=== PATIENT | female | born 1970 | race African-American/Black ===

== ENCOUNTER → 2016-11-30 | Day surgery (SDC) | payer OTHER ==
[~2016-11-30] MED LIST: PICC LINE 8 ML FLUSH PROTOCOL IVPUSH PRN
== END ==
LOC: JRADIR 10:13
PROVIDERS: ATTEND Surgery Vascular Surgery
DX: E11.51 Type 2 diabetes mellitus with diabetic peripheral angiopathy without gangrene (principal); M86.672 Other chronic osteomyelitis, left ankle and foot; Z79.4 Long term (current) use of insulin
CPT/HCPCS: G0277

== ENCOUNTER → 2016-12-01 | Day surgery (SDC) | payer OTHER | END | disposition home or self-care (01) | LOC: JRADIR 08:20 | PROVIDERS: ATTEND Surgery Vascular Surgery | PROC: 02HV33Z Insertion of Infusion Device into Superior Vena Cava, Percutaneous Approach (ICD-10-PCS; principal; 2016-12-01) | PROC: B548ZZA Ultrasonography of Superior Vena Cava, Guidance (ICD-10-PCS; 2016-12-01) | DX: N28.9 Disorder of kidney and ureter, unspecified (principal) | CPT/HCPCS: 36558; 75860; C1751; 75827-TC; 77001-TC; C1769; G0277 ==

== ENCOUNTER → 2017-02-02 | Day surgery (SDC) | payer OTHER | END | disposition home or self-care (01) | LOC: JRADIR 10:40 | PROVIDERS: ATTEND Internal Medicine Infectious Disease | PROC: 0JPT0XZ Removal of Tunneled Vascular Access Device from Trunk Subcutaneous Tissue and Fascia, Open Approach (ICD-10-PCS; principal; 2017-02-02) | DX: Z45.2 Encounter for adjustment and management of vascular access device (principal) | CPT/HCPCS: 36589; G0277 ==

== ENCOUNTER 2017-06-02 13:12 | Emergency (ER) | payer OTHER | END 2017-06-02 19:35 | disposition short-term general hospital (02) | LOC: JER 13:12 | CPT/HCPCS: 11042; 11045; 15275; 36415; 71045-TC-FY; 76705-TC; 80053; 81003; 81015; 82009; 82803; 83605; 84484; 85025; 85610; 85730; 87040; 87086; 93005; 93010; 96365; 96366; 96367; 99285-25; J7030; Q4106 ==

== ENCOUNTER 2017-07-10 17:45 | Emergency (ER) | payer OTHER ==
[2017-07-10 18:19] VITALS: BMI 32.1
[2017-07-10] MEDS ORDERED: SODIUM CHLORIDE 1,000 ML IV STA (18:41)
[2017-07-10] MEDS ORDERED: ACETAMINOPHEN 1000 MG/100 ML VIAL (NON FORMULARY) IVPB ONE (18:47)
--- NOTE | 2017-07-10 18:47 | PDOC ---
History of Present Illness - General Chief Complaint: Shortness of Breath Stated Complaint: FEVER/BLOOD PRESSURE/SUGAR PROBLEM Time Seen by Provider: 07/10/17 18:38 - History of Present Illness Initial Comments: 07/10/17 20:02 The patient is a 47 year old female with a history of HTN, HLD, DM, Renal Transplant who presents for evaluation of fever and right foot wounds. The patient reports worsening pain and swelling to her right foot on which there are multiple diabetic foot ulcers. She noted fever over the past few days prompting her presentation to the ED for further evaluation. She notes that she was admitted at [facility] in may for similar symptoms for IV antibiotics due to a left foot wound. She notes worsening symptoms in her right foot since discharge from [facility] on June 16. She also endorses some SOB over the past 1 month as well. She otherwise denies chest pain, nausea, vomiting, abdominal pain, or changes with urination or bowel movements. Past History - Past Medical History Allergies/Adverse Reactions: Allergies Allergy/AdvReac Type Severity Reaction Status Date / Time Penicillins Allergy Intermediate Itching Verified 06/02/17 13:16 Apple Allergy Uncoded 06/02/17 13:16 Grape Allergy Uncoded 06/02/17 13:16 Kiwi Allergy Uncoded 06/02/17 13:16 Home Medications: Ambulatory Orders Aspirin [Aspirin EC] 81 mg PO DAILY 09/14/14 Cholecalciferol (Vitamin D3) [Vitamin D] 50,000 unit PO WEEKLY 09/14/14 Mycophenolate Sodium [Mycophenolic Acid] 360 mg PO HS 09/14/14 Nifedipine ER [Procardia XL -] 60 mg PO BID 09/14/14 Rosuvastatin Calcium [Crestor] 10 mg PO DAILY 09/14/14 Sodium Bicarbonate - 1,300 mg PO TID 09/14/14 Tacrolimus [Prograf] 7 mg PO BID 09/14/14 predniSONE [Deltasone -] 5 mg PO DAILY 09/14/14 Brinzolamide [Azopt] 0 ml OP ASDIR 06/02/17 Furosemide [Lasix] 40 mg PO DAILY 06/02/17 Labetalol HCl [Normodyne -] 200 mg PO BID 06/02/17 Latanoprost 0.005% Eye Drops [Xalatan 0.005% Eye Drops -] 1 drop OP ASDIR Mycophenolate Sodium [Mycophenolic Acid] 720 mg PO AM 06/02/17 Propylene Glycol/Peg 400/Pf [Systane 0.3-0.4% Eye Drops] 1 each OP ASDIR Tab-A-Elvia 1 tab PO DAILY 06/02/17 Anemia: No Asthma: No Cancer: No Cardiac Disorders: No CVA: No COPD: No CHF: No DVT: No Dementia: No Diabetes: Yes (iddm/insulin pump) Dialysis: (HX, NO DIALYSIS SINCE 02/2011) GI Disorders: No Disorders: Yes (renal failure) HTN: Yes Hypercholesterolemia: Yes Liver Disease: No Seizures: No Thyroid Disease: No - Surgical History Abdominal Surgery: Yes (renal transplant 2011, rt arm fistula) Appendectomy: No Cardiac Surgery: No Cholecystectomy: No Lung Surgery: No Neurologic Surgery: No Orthopedic Surgery: No - Immunization History Td Vaccination: Yes Immunization Up to Date: Yes - Suicide/Smoking/Psychosocial Hx Smoking Status: No Smoking History: Never smoked Have you smoked in the past 12 months: No Number of Cigarettes Smoked Daily: 0 Information on smoking cessation initiated: No Hx Alcohol Use: No Drug/Substance Use Hx: No Substance Use Type: None Hx Substance Use Treatment: No Review of Systems - Review of Systems Comments:: 07/10/17 20:11 Constitutional: Fevers. No fatigue, malaise HEENT: No Rhinorrhea, nasal congestion, visual changes Cardiovascular: No chest pain, syncope, palpitations, lightheadedness Respiratory: SOB. No Cough, Hemoptysis, Gastrointestinal: No Abdominal pain, Nausea, Vomiting, Constipation, Diarrhea, Melena Genitourinary: No Dysuria, Frequency, Urgency, Hesitancy, Hematuria, Flank pain Musculoskeletal: No Myalgia, arthralgia Skin: Wounds to the Right Foot. No rashes, itching, bruising, pallor Neurologic: No Headache, Dizziness, Numbness, Weakness, or Tingling Psychiatric: No Hallucinations. No SI or HI *Physical Exam - Vital Signs Last Vital Signs Temp Pulse Resp BP Pulse Ox 101.3 F H 111 H 20 166/70 85 L 07/10/17 18:09 07/10/17 18:09 07/10/17 18:09 07/10/17 18:09 07/10/17 18:09 - Physical Exam Comments: 07/10/17 20:13 General Appearance: Nourished. In Mild Apparent Distress HEENT: EOMI, HEATHER. No Pharyngeal Erythema, Tonsillar Exudate, Tonsillar Erythema Neck: No Cervical Lymphadenopathy Respiratory/Chest: Lungs Clear, Normal Breath Sounds. No Crackles, Rales, Rhonchi, Wheezing Cardiovascular: Regular Rhythm, Regular Rate. 3/6 Systolic Murmur noted on exam. No Gallops, Rubs Gastrointestinal/Abdominal: Normal Bowel Sounds, Soft. No Guarding, Rebound, Tenderness Musculoskeletal: No CVA Tenderness Extremity: Two Diabetic foot ulcers noted to the dorsum and sole of the right foot with purulent drainage and surrounding erythema, warmth, and edema. Normal Capillary Refill Integumentary: Normal Color, Dry, Warm Neurologic: Fully Oriented, Alert, Normal Mood/Affect, Normal Response, ED Treatment Course - LABORATORY CBC & Chemistry Diagram: 07/10/17 19:00 07/10/17 19:00 - RADIOLOGY Radiology Studies Ordered: Category Date Time Status CHEST X-RAY PORTABLE* [RAD] Stat Radiology 07/10/17 18:40 Ordered Medical Decision Making - Medical Decision Making 07/10/17 20:17 The patient is a 47 year old female with a history of HTN, HLD, DM, Renal Transplant who presents for evaluation of fever and right foot wounds. Differential includes but is not limited to: Sepsis, Cellulitis, Osteomylitis, Infectious, Metabolic derangement. Given the patient's physical exam and history, it is likely the patient's symptoms are due to sepsis. We will obtain a cbc, cmp, troponin, lactate, vbg, blood cultures, wound cultures, ua, urine cultures, chest plain film, foot plain films, ekg, to evaluate further. We will treat the patient with iv fluids, iv tylenol, vanc, ceftriaxone, and continue to monitor and reassess while here in the ED. 07/10/17 22:46 CBC is remarkable for wbc to 15. CMP demonstrates a creatinine to 4.2 with a lactate of 0.9. Given the patient's renal transplant and recent admission to [facility] with sepsis due to a diabetic foot ucler to the left, the patient will require transfer to [facility] given the complexity of management with the patient's kidney transplant. We discussed the case with the team at [facility] who accepted the transfer under Dr. Grijavla. *DC/Admit/Observation/Transfer Diagnosis at time of Disposition: Sepsis Qualifiers: Sepsis type: sepsis due to unspecified organism Qualified Code(s): A41.9 - Sepsis, unspecified organism - Discharge Dispostion Disposition: TRANSFER ACUTE CARE/OTHER HOSP Condition at time of disposition: Stable - Referrals Referrals: Bethel Herrera MD [Primary Care Provider] - - Patient Instructions - Post Discharge Activity - Transfer to Acute Care Facility Receiving Facility: [facility] Accepting Physician:: Dr. Grijalva
[2017-07-10] MEDS ORDERED: CEFTRIAXONE 2 GM-D5W BAG 2 GM/50 ML BAG IVPB ONE (19:21)
[2017-07-10] MEDS ORDERED: VANCOMYCIN 1,250 MG in DEXTROSE 5%-WATER - 250 ML IVPB ONE (19:21)
[2017-07-10 19:32] LABS: VENOUS PH 7.36 (7.32-7.42); VENOUS PO2 47.7 mmHg (28-48)
[2017-07-10 19:52] LABS: BASO % 0.5 % (0-2.0); EOS % 0.7 % (0-4.5); HEMATOCRIT 28.4 % (32.4-45.2); LYMPH % 6.2 % (8-40); MCH 26.6 pg (25.7-33.7); MCHC 31.9 g/dl (32.0-36.0); MEAN CELL VOLUME 83.5 fl (80-96); MEAN PLT VOLUME 9.8 fl (7.5-11.1); NEUT % 86.6 % (42.8-82.8); PLATELET COUNT 347 K/MM3 (134-434); WHITE BLOOD COUNT 15.5 K/mm3 (4.0-10.0)
--- NOTE | 2017-07-10 20:00 | PDOC ---
Attending Attestation - Resident Resident Name: Norman Phillips - ED Attending Attestation I have performed the following: I have examined & evaluated the patient, The case was reviewed & discussed with the resident, I agree w/resident's findings & plan, Exceptions are as noted - HPI HPI: 07/10/17 20:00 Ms Dhiraj Carey is a 47yo F h/o HTN, DM, Renal Transplantation who presents to the ER due to fevers. The patient had multiple lower extremity infections, was recently seen in the ER and transported to [facility] for admission Pt reports worsening pain and swelling to her right foot on which there are multiple diabetic foot ulcers since her discharge from [facility] on June 16. She denies chest pain, nausea, vomiting, abdominal pain, or changes with urination or bowel movements. 07/11/17 19:50 - Physicial Exam PE: 07/10/17 20:00 General Appearance: Nourished. In Mild Apparent Distress HEENT: EOMI, HEATHER. No Pharyngeal Erythema, Tonsillar Exudate, Tonsillar Erythema Respiratory/Chest: Lungs Clear, Normal Breath Sounds. No Crackles, Rales, Rhonchi, Wheezing Cardiovascular: Regular Rhythm, Regular Rate. 3/6 Systolic Murmur noted on exam. Gastrointestinal/Abdominal: Normal Bowel Sounds, Soft. No Guarding, Rebound, Tenderness Extremity: Two ulcers noted to the dorsum and sole of the right foot with purulent drainage and surrounding erythema, warmth, and edema. Normal Capillary Refill Integumentary: see above Neurologic: Resting comfortably, arousable, Fully Oriented, Alert, Normal Mood/ Affect, Normal Response, - Medical Decision Making EKG: Sinus Tachycardia rate of 112bpm, Delight nml, intervals nml, non specific st changes v2, v3t wave inversion v6 (new) Laboratory Tests 07/10/17 07/10/17 07/10/17 19:00 19:00 19:00 WBC 15.5 H D Hgb 9.0 L D Hct 28.4 L Plt Count 347 D Neutrophils % 86.6 H INR 1.10 Sodium 132 L Potassium 5.7 H Chloride 98 Carbon Dioxide 22 BUN 52 H Creatinine 4.2 H Random Glucose 364 H* Alkaline Phosphatase 115 Troponin I 07/10/17 19:00 WBC Hgb Hct Plt Count Neutrophils % INR Sodium Potassium Chloride Carbon Dioxide BUN Creatinine Random Glucose Alkaline Phosphatase Troponin I < 0.02 Given Abx - Vancomycin and Ceftriaxone Pt creatnine noted to be 4.2 Will plan to sent to [facility] Clinical Impression: Fevers on immunosuppression, initial presentation Renal transplantation elevated creatinine, initial presentation
[2017-07-10 20:10] LABS: ANION GAP 12 (8-16); BLOOD UREA NITROGEN 52 mg/dL (7-18); CALCIUM 9.1 mg/dL (8.5-10.1); CHLORIDE 98 mmol/L (98-107); CO2 22 mmol/L (21-32); CREATININE 4.2 mg/dL (0.55-1.02); POTASSIUM 5.7 mmol/L (3.5-5.1); SODIUM 132 mmol/L (136-145)
[2017-07-10 20:11] LABS: ALBUMIN 2.9 g/dl (3.4-5.0); ALK PHOS 115 U/L (45-117); BILIRUBIN,TOTAL 0.5 mg/dL (0.2-1.0); GLUCOSE,RANDOM 364 mg/dL (74-106); SGOT/AST 11 U/L (15-37); SGPT/ALT 13 U/L (12-78); TOT PROT 7.4 g/dl (6.4-8.2)
[2017-07-10 20:24] LABS: INR 1.1 (0.82-1.09); PROTHROMBIN TIME (PATIENT) 12.4 SEC (9.7-13.0)
[2017-07-10 22:28] LABS: URINE APPEARANCE CLOUDY; URINE BILIRUBIN NEGATIVE (<2.0 mg/dL); URINE COLOR AMBER; URINE GLUCOSE (UA) 2+ (NEGATIVE)
[2017-07-10 22:29] LABS: URINE KETONE NEGATIVE (NEGATIVE); URINE LEUK ESTERASE NEGATIVE (NEGATIVE); URINE NITRITE NEGATIVE (NEGATIVE); URINE PROTEIN 3+ (NEGATIVE); URINE UROBILINOGEN NORMAL mg/dL (0.2-1.0)
[2017-07-10 22:30] LABS: EPI CELLS MODERATE /HPF (FEW); URINE BACTERIA FEW /hpf (NONE SEEN); URINE MUCUS RARE
[2017-07-10] MEDS ORDERED: ACETAMINOPHEN INJECTION 100 ML IVPB ONE (22:37)
[2017-07-10] MEDS ORDERED: CEFTRIAXONE 2 GM/100 ML BAG IVPB ONE (22:37)
[2017-07-11 00:50] VITALS: BP 154/66; PULSE 99; TEMP 99.5
--- NOTE | 2017-07-11 13:37 | EKG ---
Test Reason : Blood Pressure : / mmHG Vent. Rate : 112 BPM Atrial Rate : 112 BPM P-R Int : 136 ms QRS Dur : 080 ms QT Int : 326 ms P-R-T Axes : 052 000 097 degrees QTc Int : 444 ms SINUS TACHYCARDIA POSSIBLE LEFT ATRIAL ENLARGEMENT T WAVE ABNORMALITY, CONSIDER LATERAL ISCHEMIA ABNORMAL ECG Confirmed by MD Netta, Joao ([id number]) on 07/11/2017 1:37:04 PM Referred By: Confirmed By:Joao Chadwick MD
--- NOTE | 2017-07-11 13:41 | EKG ---
Test Reason : Blood Pressure : / mmHG Vent. Rate : 107 BPM Atrial Rate : 107 BPM P-R Int : 132 ms QRS Dur : 076 ms QT Int : 332 ms P-R-T Axes : 049 004 100 degrees QTc Int : 443 ms SINUS TACHYCARDIA POSSIBLE LEFT ATRIAL ENLARGEMENT T WAVE ABNORMALITY, CONSIDER LATERAL ISCHEMIA ABNORMAL ECG WHEN COMPARED WITH ECG OF 10-JUL-2017 17:58, NO SIGNIFICANT CHANGE WAS FOUND Confirmed by MD Netta, Joao ([id number]) on 07/11/2017 1:40:41 PM Referred By: Confirmed By:Joao Chadwick MD
--- NOTE | 2017-07-13 11:29 | PDOC ---
Patient Follow-up (Call Back) - Post ED Follow - Up Condition at time of discharge: Stable Disposition at time of original discharge: TRANSFER ACUTE CARE/OTHER HOSP Reason for Call Back: Abnwl. Microbiology (2 blood culture results and wound culture results fowarded to dr. fleming at [facility])
== END 2017-07-11 03:13 | disposition short-term general hospital (02) ==
LOC: JER 17:45
PROC: 3E03329 Introduction of Other Anti-infective into Peripheral Vein, Percutaneous Approach (ICD-10-PCS; principal; 2017-07-10)
PROC: 3E03329 Introduction of Other Anti-infective into Peripheral Vein, Percutaneous Approach (ICD-10-PCS; 2017-07-10)
PROC: 3E033NZ Introduction of Analgesics, Hypnotics, Sedatives into Peripheral Vein, Percutaneous Approach (ICD-10-PCS; 2017-07-10)
PROC: 3E0337Z Introduction of Electrolytic and Water Balance Substance into Peripheral Vein, Percutaneous Approach (ICD-10-PCS; 2017-07-10)
DX: A41.9 Sepsis, unspecified organism (principal); E11.621 Type 2 diabetes mellitus with foot ulcer; L97.511 Non-pressure chronic ulcer of other part of right foot limited to breakdown of skin; Z79.4 Long term (current) use of insulin; Z96.41 Presence of insulin pump (external) (internal); I10 Essential (primary) hypertension; E78.00 Pure hypercholesterolemia, unspecified; Z94.0 Kidney transplant status
CPT/HCPCS: 36415; 71045-TC-FY; 73630-TC-RT-FY; 80053; 81003; 81015; 82803; 83605; 84484; 84703; 85025; 85610; 85730; 87040; 87070; 87186; 87205; 93005; 93010; 96361; 96365; 96367; 96375; 99285-25; J0131; J7030

== ENCOUNTER 2019-08-05 06:24 | Day surgery (SDC) | payer OTHER ==
[2019-08-02 10:26] VITALS: BMI 23.6
[2019-08-05] MEDS ORDERED: PROMETHAZINE HCL 25 MG/1 ML VIAL IVPUSH PRN (07:43)
[2019-08-05] MEDS ORDERED: ONDANSETRON 4 MG/2 ML VIAL IVPUSH PRN (07:43)
[2019-08-05] MEDS ORDERED: SODIUM CHLORIDE 1,000 ML IV SCH (07:45)
[2019-08-05] MEDS ORDERED: ROCURONIUM BROMIDE 50 MG/5 ML SYRINGE ONE (08:04)
[2019-08-05] MEDS ORDERED: PROPOFOL 20 ML ONE (08:04)
[2019-08-05] MEDS ORDERED: LIDOCAINE HCL/PF 2% SDV 5ML VIAL ONE (08:05)
[2019-08-05] MEDS ORDERED: MIDAZOLAM HCL 2 MG/2 ML SINGLE DOSE VIAL ONE (08:05)
[2019-08-05] MEDS ORDERED: ceFAZolin SODIUM 1 GM VIAL ONE (08:23)
[2019-08-05] MEDS ORDERED: SODIUM CHLORIDE 0.9% P/F 10 ML VIAL IJ ONE (08:23)
[2019-08-05] MEDS ORDERED: ceFAZolin 2 GRAM PREMIX BAG IVPB ONE (08:25)
[2019-08-05 08:26] LABS: ALBUMIN 3.7 g/dl (3.4-5.0); BILIRUBIN,TOTAL 0.5 mg/dL (0.2-1); BLOOD UREA NITROGEN 89.9 mg/dL (7-18); CALCIUM 8.4 mg/dL (8.5-10.1); POTASSIUM 5.4 mmol/L (3.5-5.1)
[2019-08-05 08:29] LABS: CREATININE 12.5 mg/dL (0.55-1.3)
[2019-08-05] MEDS ORDERED: BUPIVACAINE HCL/PF 0.5% (5 MG/ML) 30 ML VIAL IJ ONE ×2 (08:30)
[2019-08-05] MEDS ORDERED: GLYCOPYRROLATE 0.2 MG/1 ML VIAL ONE (08:56)
[2019-08-05] MEDS ORDERED: NEOSTIGMINE METHYLSULFATE 0.5 MG/ML - 10 ML MDV ONE (08:56)
[2019-08-05] MEDS ORDERED: LORazepam 2 MG/ML SDV VIAL IVPUSH ONE (09:27)
[2019-08-05 10:31] VITALS: TEMP 96.6
[2019-08-05 11:39] VITALS: BP 141/68; PULSE 67
== END 2019-08-05 13:16 | disposition home or self-care (01) ==
LOC: JASU-SURG 06:24
PROVIDERS: ATTEND Surgery
PROC: 0DNW4ZZ Release Peritoneum, Percutaneous Endoscopic Approach (ICD-10-PCS; 2019-08-05)
PROC: 0WHG43Z Insertion of Infusion Device into Peritoneal Cavity, Percutaneous Endoscopic Approach (ICD-10-PCS; principal; 2019-08-05 08:00)
DX: E11.22 Type 2 diabetes mellitus with diabetic chronic kidney disease (principal); I12.0 Hypertensive chronic kidney disease with stage 5 chronic kidney disease or end stage renal disease; N18.6 End stage renal disease; N17.9 Acute kidney failure, unspecified; Z99.2 Dependence on renal dialysis; Z79.4 Long term (current) use of insulin; Z88.0 Allergy status to penicillin; Z94.0 Kidney transplant status; Z91.018 Allergy to other foods; K66.0 Peritoneal adhesions (postprocedural) (postinfection)
CPT/HCPCS: 36415; 80053; 82947; 82962; 94760; J1644